=== PATIENT | male | born 1960 | race Caucasian/White ===

== ENCOUNTER 2017-04-16 08:52 | Emergency (ER) | payer BC ==
[2017-04-16 09:05] VITALS: BP 123/87
--- NOTE | 2017-04-16 09:27 | EDM.PDOC ---
ED HPI GENERAL MEDICAL PROBLEM - General Chief Complaint: Back Pain or Injury Stated Complaint: FELL/BACK AND R SIDE INJURY Time Seen by Provider: 04/16/17 09:09 Source of Information: Reports: Patient, RN Notes Reviewed - History of Present Illness INITIAL COMMENTS - FREE TEXT/NARRATIVE: 56-year-old male injured right posterior chest wall mid back having slipped and fallen down some steps couple of hours ago. She was taking the garbage out, slipped and struck his back on the steps with severe pain right lower rib cage on the back and also to the side. Worse with any type of motion, worse with deep breathing. He did admit that he has been drinking some alcohol. He does deny injury to his head neck upper or lower extremities. Has been ambulatory without major difficulty although it does hurt to move. Right Back Pain Score (Numeric/FACES): 6 - Related Data Allergies Allergy/AdvReac Type Severity Reaction Status Date / Time No Known Allergies Allergy Verified 04/16/17 09:05 Home Meds: Home Meds . [Unable to Verify Home Med List] 08/25/15 [History] Past Medical History HEENT History: Reports: Impaired Vision Other HEENT History: wears eyeglasses at [employer] for driving. Cardiovascular History: Reports: Hypertension Genitourinary History: Reports: Other (See Below) Other Genitourinary History: prostate cancer Musculoskeletal History: Reports: Back Pain, Chronic Other Musculoskeletal History: degenerative disc disease. Oncologic (Cancer) History: Reports: Prostate - Past Surgical History GI Surgical History: Reports: Appendectomy Social & Family History - Family History Family Medical History: Noncontributory - Tobacco Use Smoking Status *Q: Never Smoker Years of Tobacco use: 40 Packs/Tins Daily: 1 Second Hand Smoke Exposure: No - Alcohol Use Days Per Week of Alcohol Use: 2 Number of Drinks Per Day: 6 Total Drinks Per Week: 12 Date of Last Drink: 04/16/17 Time of Last Drink: 08:00 - Recreational Drug Use Recreational Drug Use: No - Living Situation & Occupation Living situation: Reports: , with Family Occupation: Employed ED ROS GENERAL - Review of Systems Review Of Systems: See Below Constitutional: Denies: Diaphoresis HEENT: Reports: No Symptoms. Denies: Vertigo Respiratory: Reports: Pleuritic Chest Pain. Denies: Shortness of Breath Cardiovascular: Reports: Chest Pain (With breathing and also with motion primarily right lower lateral and posterior chest wall) GI/Abdominal: Denies: Abdominal Pain, Nausea, Vomiting Musculoskeletal: Reports: Back Pain (Right mid back) Skin: Reports: No Symptoms Neurological: Denies: Numbness, Tingling, Weakness ED EXAM,LOWER BACK PAIN/INJURY - Physical Exam Exam: See Below General Appearance: Alert, Mild Distress Eye Exam: Bilateral Eye: PERRL Throat/Mouth: Normal Inspection Head: Atraumatic. No: Facial Swelling Neck: Normal Inspection, Supple, Non-Tender, Full Range of Motion Respiratory/Chest: No Respiratory Distress, Lungs Clear, Normal Breath Sounds, Other (Tender right lower lateral chest wall and right posterior lateral chest wall, no bruising or swelling visible) GI/Abdominal: Soft, Non-Tender. No: Guarding Back Exam: Other (Tender right lateral mid back no bruising swelling or abrasion visible). No: Paraspinal Tenderness, Vertebral Tenderness Extremities: Normal Inspection, Normal Range of Motion. No: Arm Pain, Leg Pain Neurological: Alert, No Motor/Sensory Deficits, Oriented x 3 Skin Exam: Warm, Dry, Normal Color Course - Vital Signs Last Recorded V/S: Last Vital Signs Temp Pulse 73 04/16/17 09:01 Resp 18 04/16/17 09:01 BP 123/87 04/16/17 09:01 Pulse Ox 99 04/16/17 09:01 - Orders/Labs/Meds Orders: Active Orders 24 hr Category Date Time Status Ribs 2V w Chest Rt [CR] Stat Exams 04/16/17 09:23 Taken Meds: Medications Discontinued Medications Generic Name Dose Route Start Last Admin Trade Name Margarita PRN Reason Stop Dose Admin Hydrocodone Bitart/Acetaminophen 1 tab 04/16/17 10:04 04/16/17 10:21 [place] 325-5 Mg PO 04/16/17 10:05 1 tab ONETIME ONE Administration - Re-Assessments/Exams Free Text/Narrative Re-Assessment/Exam: 04/16/17 10:04 X-rays do show fracture of right lower rib very slight angulation, will give a hydrocodone now, discharge instructions as documented Departure - Departure Time of Disposition: 10:05 Disposition: Home, Self-Care 01 Condition: Fair Clinical Impression: Fall Qualifiers: Encounter type: initial encounter Qualified Code(s): W19.XXXA - Unspecified fall, initial encounter Rib fracture Qualifiers: Encounter type: initial encounter Rib fracture type: single rib Fracture type: closed Laterality: right Qualified Code(s): S22.31XA - Fracture of one rib, right side, initial encounter for closed fracture - Discharge Information Instructions: Rib Fracture, [id number] Referrals: PCP,Unknown [Primary Care Provider] - Forms: ED Department Discharge, ED Return to Work/School Form Additional Instructions: Rest, increase activity slowly as tolerated, no lifting more than 20 pounds recommended until April 27. Aleve 2 tabs twice daily, you may take Tylenol 2-3 times daily for extra pain relief or hydrocodone if needed for severe pain. Do not take Tylenol and hydrocodone at the same time, do not drive or work when taking hydrocodone. Follow-up clinic as needed. Return to ED if symptoms worsening in any way - My Orders Last 24 Hours: My Active Orders 04/16/17 09:23 Ribs 2V w Chest Rt [CR] Stat - Assessment/Plan Last 24 Hours: My Active Orders 04/16/17 09:23 Ribs 2V w Chest Rt [CR] Stat
[2017-04-16] MEDS ORDERED: Acetaminophen/HYDROcodone 325-5 MG Tab PO ONE (10:04)
--- NOTE | 2017-04-20 16:02 | CR ---
Chest and right ribs: Frontal view of the chest was obtained as well as 3 additional views of the right ribs. One view of the right ribs show significant motion artifact. Comparison: No prior chest x-ray. Heart size and mediastinum are normal. Lungs are clear. Mild scoliosis and degenerative spurring is noted within the spine with scattered disc space narrowing. Old healed rib fracture seen within the posterior eighth rib and ninth rib. No acute rib fracture or other rib abnormality is appreciated. Impression: 1. Several old healed rib fractures. No acute rib fracture is appreciated with certainty. 2. Nothing acute is seen on accompanying chest x-ray. Diagnostic code #2
== END 2017-04-16 10:24 | disposition home or self-care (01) ==
LOC: JD.ED 08:52
DX: S22.31XA Fracture of one rib, right side, initial encounter for closed fracture (principal); I10 Essential (primary) hypertension; W10.9XXA Fall (on) (from) unspecified stairs and steps, initial encounter
CPT/HCPCS: 71101; 99283; A9270

== ENCOUNTER 2020-12-09 01:23 | Emergency (ER) | payer BC ==
[2020-12-09 01:31] VITALS: BP 125/90
[2020-12-09] MEDS ORDERED: Ondansetron 4 MG/2 ML SDV IVPUSH ONE (01:35)
[2020-12-09] MEDS ORDERED: Lactated Ringers 1,000 ML IV SCH (01:45)
--- NOTE | 2020-12-09 03:31 | EDM.PDOC ---
ED HPI GENERAL MEDICAL PROBLEM - General Chief Complaint: Head Injury Stated Complaint: [facility] Time Seen by Provider: 12/09/20 01:24 - History of Present Illness INITIAL COMMENTS - FREE TEXT/NARRATIVE: 60-year-old male brought in by EMS after falling down some stairs. Apparently the patient was at the bar this evening but he does not remember this. He was at home and did not negotiate some stairs and fell down about 6 or 7 stairs he did hit his head. The patient is alert and cooperative upon arrival to the emergency room but is uncertain of how much she had to drink tonight and does not remember going to the bar. He has a very small laceration on his forehead and a large hematoma on the back of his scalp left side posterior. The patient denies any other pain or symptoms at this point. Headache Pain Score (Numeric/FACES): 6 - Related Data Allergies Allergy/AdvReac Type Severity Reaction Status Date / Time No Known Allergies Allergy Verified 12/09/20 01:30 Home Meds: Home Meds . [No Known Home Meds] 12/09/20 [History] Past Medical History HEENT History: Reports: Impaired Vision Other HEENT History: wears eyeglasses at [employer] for driving. Cardiovascular History: Reports: Hypertension Genitourinary History: Reports: Other (See Below) Other Genitourinary History: prostate cancer Musculoskeletal History: Reports: Back Pain, Chronic Other Musculoskeletal History: degenerative disc disease. Oncologic (Cancer) History: Reports: Prostate - Past Surgical History GI Surgical History: Reports: Appendectomy Male Surgical History: Reports: Prostatectomy Social & Family History - Family History Family Medical History: No Pertinent Family History - Tobacco Use Tobacco Use Status *Q: Never Tobacco User - Recreational Drug Use Recreational Drug Use: No - Living Situation & Occupation Living situation: Reports: , with Family Occupation: Employed ED ROS GENERAL - Review of Systems Review Of Systems: See Below Constitutional: Reports: No Symptoms HEENT: Reports: No Symptoms Respiratory: Reports: No Symptoms Cardiovascular: Reports: No Symptoms Endocrine: Reports: No Symptoms GI/Abdominal: Reports: No Symptoms : Reports: No Symptoms Musculoskeletal: Reports: No Symptoms Skin: Reports: No Symptoms Neurological: Reports: No Symptoms Psychiatric: Reports: No Symptoms Hematologic/Lymphatic: Reports: No Symptoms Immunologic: Reports: No Symptoms ED EXAM, HEAD INJURY - Physical Exam Exam: See Below Exam Limited By: Intoxication General Appearance: Alert, No Apparent Distress Head: Scalp Abrasions (Very superficial over the hematoma), Scalp Hematoma. No: Scalp Tenderness, Active Bleeding, Boss's Sign Nexus Criteria: Evidence of Intoxication Eyes: Bilateral Eye: EOMI, PERRL Ears: Normal External Exam, Normal Canal, Hearing Grossly Normal, Normal TMs Nose: Normal Inspection, Normal Mucousa, No Blood Throat/Mouth: Normal Inspection, Normal Lips, Normal Gums, Normal Oropharynx, Normal Voice, No Airway Compromise Neck: Non-Tender, Full Range of Motion, Normal Alignment, Normal Inspection. No: Paraspinous Muscle Tender, Spinous Processes Tender, Tender Lateral, Tender Midline Respiratory: No Respiratory Distress, Lungs Clear, Normal Breath Sounds Cardiovascular: Regular Rate, Rhythm, No Edema, No Murmur GI/Abdominal Exam: Normal Bowel Sounds, Soft, Non-Tender, Pelvis Stable, Other (Obese) Back Exam: Normal Inspection. No: CVA Tenderness (L), CVA Tenderness (R), Muscle Spasm, Paraspinal Tenderness, Vertebral Tenderness Extremities: Normal Inspection, Normal Range of Motion, Non-Tender, No Pedal Edema - [place] Coma Score Best Eye Response ([place]): (4) Open Spontaneously Best Verbal Response ([place]): (5) Oriented Best Motor Response ([place]): (6) Obeys Commands [place] Total: 15 Course - Vital Signs Last Recorded V/S: Last Vital Signs Temp 36.8 C 12/09/20 01:28 Pulse 78 12/09/20 01:28 Resp 16 12/09/20 01:28 BP 125/90 12/09/20 01:28 Pulse Ox 96 12/09/20 01:28 - Orders/Labs/Meds Orders: Active Orders 24 hr Category Date Time Status Head wo Cont [CT] Stat Exams 12/09/20 01:29 Taken Lactated Ringers [Ringers, Lactated] 1,000 ml Med 12/09/20 01:45 Active IV ASDIRECTED Medication Orders Lactated Ringer's (Ringers, Lactated) 1,000 mls @ 125 mls/hr IV ASDIRECTED DAYRON Last Admin: 12/09/20 01:57 Dose: 125 mls/hr Documented by: HEIDE Labs: Laboratory Tests 12/09/20 12/09/20 12/09/20 Range/Units 01:42 01:42 01:42 WBC 8.18 (4.23-9.07) K/mm3 RBC 4.99 (4.63-6.08) M/mm3 Hgb 14.6 (13.7-17.5) gm/dl Hct 42.5 (40.1-51.0) % MCV 85.2 (79.0-92.2) fl MCH 29.3 (25.7-32.2) pg MCHC 34.4 (32.2-35.5) g/dl RDW Std Deviation 42.8 (35.1-43.9) fL Plt Count 168 (163-337) K/mm3 MPV 8.8 L (9.4-12.3) fl Neut % (Auto) 62.1 (34.0-67.9) % Lymph % (Auto) 28.2 (21.8-53.1) % Becker % (Auto) 6.4 (5.3-12.2) % Eos % (Auto) 2.2 (0.8-7.0) Baso % (Auto) 0.7 (0.1-1.2) % Neut # (Auto) 5.08 (1.78-5.38) K/mm3 Lymph # (Auto) 2.31 (1.32-3.57) K/mm3 Becker # (Auto) 0.52 (0.30-0.82) K/mm3 Eos # (Auto) 0.18 (0.04-0.54) K/mm3 Baso # (Auto) 0.06 (0.01-0.08) K/mm3 PT 10.0 (9.7-12.0) SECONDS INR 0.93 APTT 24.5 (21.7-31.4) SECONDS Sodium 143 (136-145) mEq/L Potassium 3.4 L (3.5-5.1) mEq/L Chloride 107 (98-107) mEq/L Carbon Dioxide 22 (21-32) mEq/L Anion Gap 17.4 H (5-15) BUN 8 (7-18) mg/dL Creatinine 0.8 (0.7-1.3) mg/dL Est Cr Clr Drug Dosing TNP Estimated GFR (MDRD) > 60 (>60) mL/min BUN/Creatinine Ratio 10.0 L (14-18) Glucose 97 (70-99) mg/dL Calcium 8.2 L (8.5-10.1) mg/dL Magnesium 2.2 (1.8-2.4) mg/dL Total Bilirubin 0.4 (0.2-1.0) mg/dL AST 18 (15-37) U/L ALT 13 L (16-63) U/L Alkaline Phosphatase 76 (46-116) U/L Total Protein 6.9 (6.4-8.2) g/dl Albumin 3.6 (3.4-5.0) g/dl Globulin 3.3 gm/dL Albumin/Globulin Ratio 1.1 (1-2) Ethyl Alcohol 0.32 (0.00) gm% Meds: Medications Generic Name Dose Route Start Last Admin Trade Name Freq PRN Reason Stop Dose Admin Lactated Ringer's 1,000 mls @ 125 mls/hr 12/09/20 01:45 12/09/20 01:57 Ringers, Lactated IV 125 mls/hr ASDIRECTED [place] Administration Discontinued Medications Generic Name Dose Route Start Last Admin Trade Name Freq PRN Reason Stop Dose Admin Ondansetron HCl 4 mg 12/09/20 01:35 12/09/20 01:42 Ondansetron 4 Mg/2 Ml Sdv IVPUSH 12/09/20 01:36 4 mg ONETIME ONE Administration - Re-Assessments/Exams Free Text/Narrative Re-Assessment/Exam: 12/09/20 03:42 The labs reviewed lactic acid is up blood alcohol 0.32 the patient is sleeping at this time. Head CT shows a extra-axial high density mass involving the left falx cerebri near the left parietal convexity thought to be a meningioma this measures 2 cm and causes mild compression upon the left parietal lobe the reading radiologist recommended a nonemergent MRI of the brain with enhancement to confirm this CT also shows a left posterior scalp hematoma 12/09/20 04:29 The patient is awake now and would like to be discharged. He is ambulatory here in the department. With discussion at this time the patient believes his tetanus is up-to-date Departure - Departure Time of Disposition: 04:30 Disposition: Home, Self-Care 01 Clinical Impression: Head injury, Scalp hematoma, Forehead abrasion - Discharge Information Forms: ED Department Discharge Additional Instructions: Return to the emergency room with any questions problems or concerning symptoms. Follow-up with Dr. Ku this next week for recheck. Discussed the mass we talked about in your head where it is recommended he have an MRI of your brain. Drink plenty of fluids, however avoid alcoholic beverages. Sepsis Event Note (ED) - Evaluation Sepsis Screening Result: No Definite Risk - Focused Exam Vital Signs: Vital Signs Temp Pulse Resp BP Pulse Ox 12/09/20 01:28 36.8 C 78 16 125/90 96 - My Orders Last 24 Hours: My Active Orders 12/09/20 01:29 Head wo Cont [CT] Stat 12/09/20 01:45 Lactated Ringers [Ringers, Lactated] 1,000 ml IV ASDIRECTED - Assessment/Plan Last 24 Hours: My Active Orders 12/09/20 01:29 Head wo Cont [CT] Stat 12/09/20 01:45 Lactated Ringers [Ringers, Lactated] 1,000 ml IV ASDIRECTED
[2020-12-09 04:51] VITALS: PULSE 76
--- NOTE | 2020-12-09 08:35 | CT ---
Head CT Technique: Multiple axial sections through the brain were obtained. Intravenous contrast was not utilized. Comparison: No prior intracranial imaging is available. Findings: Ventricles along wth basal cisterns and sulci over the convexities appear within normal limits for the patient's age. There is a slightly hyperdense mass being located extra-axially within the left calvarial convexity which measures 1.6 cm x 2.1 cm. This is felt compatible with a small meningioma. No abnormal parenchymal densities are seen. No evidence of intracranial hemorrhage is seen. No midline shift or mass-effect is seen. Soft tissue swelling and mild soft tissue hematoma seen within the left lateral scalp. Soft tissue swelling measures up to 5.9 cm. Bone window settings were reviewed which show no acute calvarial abnormality. Visualized mastoid sinuses and visualized paranasal sinuses show nothing acute. Minimal retention cyst is incidentally noted within the right maxillary sinus. Impression: 1. Findings compatible with meningioma in an extra-axial location within the left posterior parietal region. This finding measures approximately 2.1 cm. 2. Soft tissue swelling with small amount of hematoma within the lateral left scalp. 3. No acute intracranial abnormality is appreciated. Diagnostic code #2 I agree with preliminary report from [facility] finalized on 12/09/20, 3:08 AM CDT, code 1
== END 2020-12-09 04:52 | disposition home or self-care (01) ==
LOC: JD.ED 01:23
DX: S00.03XA Contusion of scalp, initial encounter (principal); S00.81XA Abrasion of other part of head, initial encounter; I10 Essential (primary) hypertension; E66.9 Obesity, unspecified; W10.9XXA Fall (on) (from) unspecified stairs and steps, initial encounter; Y92.009 Unspecified place in unspecified non-institutional (private) residence as the place of occurrence of the external cause
CPT/HCPCS: 36415; 70450; 80053; 80307; 83735; 85025; 85610; 85730; 96374; 99285; J2405; J7120; 99283

== ENCOUNTER 2021-08-17 20:43 | Emergency (ER) | payer BC ==
[2021-08-17 20:57] VITALS: BP 215/113; PULSE 88
[2021-08-17] MEDS ORDERED: Lidocaine 2% Viscous Solution 15 ML UD PO ONE (21:02)
[2021-08-17] MEDS ORDERED: Lidocaine 2% Jelly 10 ML Urojet ONE (21:46)
[2021-08-17] MEDS ORDERED: Lidocaine 2% Jelly 10 ML Urojet MUCMEM ONE (22:14)
== END 2021-08-17 22:25 | disposition home or self-care (01) ==
LOC: JD.ED 20:43
DX: R33.9 Retention of urine, unspecified (principal)
CPT/HCPCS: 99283; 99284

== ENCOUNTER 2023-06-17 07:41 | Emergency (ER) | payer BC ==
[2023-06-17 08:40] LABS: BASOPHILS ABSOLUTE AUTO 0.1 K/mm3 (0.0-0.2); BASOPHILS PERCENT AUTO 0.7 % (0.0-1.0); EOSINOPHILS ABSOLUTE AUTO 0.1 K/mm3 (0.0-0.4); EOSINOPHILS PERCENT AUTO 1.2 % (0.0-6.0); HEMATOCRIT 35.7 % (42.0-52.0); IMMATURE GRAN ABSOLUTE AUTO 0.05 K/mm3 (0.00-0.05); IMMATURE GRAN PERCENT AUTO 0.6 % (0.0-0.4); LYMPHOCYTES ABSOLUTE AUTO 1.3 K/mm3 (1.0-4.8); LYMPHOCYTES PERCENT AUTO 15.3 % (24.0-44.0); MEAN CORPUSCULAR HEMOGLOBIN 27.6 pg (28.0-32.0); MEAN CORPUSCULAR HGB CONC 33.6 g/dl (32.0-36.0); MEAN CORPUSCULAR VOLUME 82.1 fl (83.0-99.0); MEAN PLATELET VOLUME 9.9 fl (9.4-12.4); MONOCYTES ABSOLUTE AUTO 1.2 K/mm3 (0.0-0.8); MONOCYTES PERCENT AUTO 13.9 % (0.0-8.0); NEUTROPHILS ABSOLUTE AUTO 5.8 K/mm3 (1.8-7.7); NEUTROPHILS PERCENT AUTO 68.3 % (41.0-71.0); PLATELET COUNT,PLT 172 K/mm3 (150-400); RED BLOOD CELL COUNT 4.35 M/mm3 (4.52-5.90); WHITE BLOOD CELL COUNT,WBC 8.42 K/mm3 (3.9-11.3)
[2023-06-17 08:56] LABS: ANION GAP 14.5 (5-15); BUN/CREATININE RATIO 19.1 (14-18); CALCIUM 8.7 mg/dL (8.5-10.1); CREATININE 1.1 mg/dL (0.7-1.3); EST CRCL DRUG DOSING (CG) 69.63 mL/min; POTASSIUM,K 3.5 mEq/L (3.5-5.1)
[2023-06-17 09:24] LABS: APPEARANCE,URINE CLOUDY (Clear); BILIRUBIN,URINE 2+ (Negative); COLOR,URINE DARK YELLOW (Yellow); GLUCOSE,URINE NEGATIVE (Negative); KETONES,URINE TRACE (Negative); LEUKOCYTE ESTERASE,URINE 1+ (Negative); NITRITE,URINE NEGATIVE (Negative); OCCULT BLOOD,URINE 2+ (Negative); PH,URINE 5.5 (5.0-8.0); PROTEIN,URINE 3+ (Negative)
[2023-06-17 10:06] LABS: BACTERIA,URINE FEW /hpf (FEW); EPITHELIAL CELLS,URINE 0-5 /hpf (0-5); RBC,URINE 0-5 /hpf (0-5); WBC,URINE 50-75 /hpf (0-5)
[2023-06-17 10:07] LABS: MUCUS,URINE FEW /hpf (FEW)
[2023-06-17] MEDS ORDERED: Sodium Chloride 0.9% 10 ML Syringe FLUSH PRN (10:19)
[2023-06-17] MEDS ORDERED: Iopamidol 612 MG/ML 100 ML Bottle IVPUSH ONE (10:19)
[2023-06-17 13:14] VITALS: BP 107/79; PULSE 67
== END 2023-06-17 12:17 | disposition home or self-care (01) ==
LOC: JD.ED 07:41
DX: N39.0 Urinary tract infection, site not specified (principal); I10 Essential (primary) hypertension; F17.210 Nicotine dependence, cigarettes, uncomplicated; Z79.899 Other long term (current) drug therapy
CPT/HCPCS: 36415; 74177; 74177-26; 80048; 81001; 85025; 87086; 99284; J3490; Q9967